=== PATIENT | female | born 1950 | race Caucasian/White ===

== ENCOUNTER 2021-06-05 16:06 | Inpatient (IN) | payer MEDICARE, BC ==
[~2021-06-05] VITALS: Ht 165.1 cm; Wt 74.8 kg
[2021-06-05 16:48] LABS: BASOPHILS % 0.6 % (0.0-1.0); EOSINOPHILS % 1.2 % (0.0-6.0); HEMATOCRIT 37.4 % (34.2-44.1); HEMOGLOBIN 11.9 g/dL (12.0-16.0); LYMPHOCYTES # (AUTO) 1.4 (1.0-3.2); LYMPHOCYTES % 43.2 % (18.0-39.1); MEAN CORPUSCULAR HEMOGLOBIN 27.8 pg (28-32); MEAN CORPUSCULAR HGB CONC 31.8 g/dL (31-35); MEAN CORPUSCULAR VOLUME 87.4 fL (81-99); MONOCYTES # (AUTO) 0.4 (0.2-0.8); MONOCYTES % 12.1 % (4.4-11.3); NEUTROPHILS # (AUTO) 1.4 (2.1-6.9); NEUTROPHILS % 42.6 % (38.7-80.0); PLATELET COUNT 255 x10e3/uL (140-360); RED BLOOD COUNT 4.28 x10e6/uL (3.6-5.1); RED CELL DISTRIBUTION WIDTH 14.6 % (11.7-14.4)
[2021-06-05 16:54] LABS: INR 0.94; PROTHROMBIN TIME 13.3 seconds (11.9-14.5)
[2021-06-05 17:04] LABS: ALBUMIN 3.8 g/dL (3.5-5.0); ALBUMIN/GLOBULIN RATIO 1.2 (0.8-2.0); ANION GAP 15.2 mmol/L (8-16); CALCIUM 8.3 mg/dL (8.4-10.2); CREATININE, SERUM 1.11 mg/dL (0.57-1.11); POTASSIUM 4.2 mmol/L (3.5-5.1)
[2021-06-06] VITALS (8 sets, daily range): BP systolic 131–162; BP diastolic 48–78
[2021-06-06] MEDS ORDERED: HYDROXYZINE HCL25 MG PO (07:53)
[2021-06-06] MEDS ORDERED: NORTRIPTYLINE H50 MG PO (07:53)
[2021-06-06] MEDS ORDERED: IRBESARTAN150 MG PO (07:53)
[2021-06-06] MEDS ORDERED: BISOPROLOL-HCT1 EAC1 PO (07:53)
[2021-06-06] MEDS ORDERED: LEVOTHYROXINE137 MCG PO (07:53)
[2021-06-06] MEDS ORDERED: OMEPRAZOLE40 MG PO (07:53)
[2021-06-06] MEDS ORDERED: SERTRALINE HCL50 MG PO (07:53)
[2021-06-06] MEDS ORDERED: ATORVASTATIN CA10 MG PO (07:53)
[2021-06-06] MEDS ORDERED: CALCIUM CARBONATE 500 MG CHEWABLE TABS PO PRN (14:15)
[2021-06-06] MEDS ORDERED: ATORVASTATIN 10 MG TAB PO SCH (21:00)
[2021-06-07] VITALS: BP 171/55
[2021-06-07 04:00] VITALS: BP 146/73
[2021-06-07 05:05] LABS: BASOPHILS % 0.3 % (0.0-1.0); EOSINOPHILS # (AUTO) 0.1 (0.0-0.4); EOSINOPHILS % 1.7 % (0.0-6.0); HEMATOCRIT 35.3 % (34.2-44.1); HEMOGLOBIN 11.4 g/dL (12.0-16.0); LYMPHOCYTES # (AUTO) 1.6 (1.0-3.2); LYMPHOCYTES % 44.1 % (18.0-39.1); MEAN CORPUSCULAR HEMOGLOBIN 27.6 pg (28-32); MEAN CORPUSCULAR HGB CONC 32.3 g/dL (31-35); MEAN CORPUSCULAR VOLUME 85.5 fL (81-99); MONOCYTES # (AUTO) 0.5 (0.2-0.8); MONOCYTES % 13.2 % (4.4-11.3); NEUTROPHILS # (AUTO) 1.5 (2.1-6.9); NEUTROPHILS % 40.1 % (38.7-80.0); PLATELET COUNT 228 x10e3/uL (140-360); RED BLOOD COUNT 4.13 x10e6/uL (3.6-5.1); RED CELL DISTRIBUTION WIDTH 14.5 % (11.7-14.4)
[2021-06-07 05:27] LABS: ANION GAP 12.9 mmol/L (8-16); CALCIUM 8.8 mg/dL (8.4-10.2); CREATININE, SERUM 0.97 mg/dL (0.57-1.11); POTASSIUM 4.9 mmol/L (3.5-5.1)
[2021-06-07] MEDS ORDERED: LEVOTHYROXINE SODIUM 25 MCG TABLET PO SCH (06:00)
[2021-06-07] MEDS ORDERED: LEVOTHYROXINE SODIUM 112 MCG TAB PO SCH (06:00)
[2021-06-07 08:28] VITALS: BP 143/74
[2021-06-07] MEDS ORDERED: SERTRALINE HCL 50 MG TAB PO SCH (09:00)
[2021-06-07] MEDS ORDERED: NON-FORMULARY MEDICATION (Levothyroxine Sodium 1 TAB) PO SCH (09:00)
[2021-06-07] MEDS ORDERED: PANTOPRAZOLE SOD 40 MG TABEC PO SCH (09:00)
[2021-06-07 09:49] VITALS: BP 145/68
[2021-06-07] MEDS ORDERED: SYNTHROID75 MCG PO (14:11)
[2021-06-07 14:26] VITALS: BP 155/67
[2021-06-07 16:00] VITALS: BP 136/65
[2021-06-07] MEDS ORDERED: ZITHROMAX500 MG PO (16:14)
[2021-06-07] MEDS ORDERED: VITAMIN C500 MG PO (16:15)
== END 2021-06-07 17:44 | disposition home or self-care (01) | DRG 177 ==
LOC: ER 16:17 → ERHOLD 17:41 → MED/SURG2 06-06 12:03
PROVIDERS: ADMIT Internal Medicine; ATTEND Internal Medicine
PROC: 8E0ZXY6 Isolation (ICD-10-PCS; principal; 2021-06-05)
DX: U07.1 COVID-19 (principal); J12.82 Pneumonia due to coronavirus disease 2019; I10 Essential (primary) hypertension; E03.9 Hypothyroidism, unspecified; Z88.5 Allergy status to narcotic agent; Z88.7 Allergy status to serum and vaccine; F32.A Depression, unspecified; Z79.899 Other long term (current) drug therapy
CPT/HCPCS: 36415; 70450; 70551; 71045; 80048; 80053; 84484; 85025; 85610; 93005; 94799; 99284; U0002